=== PATIENT | female | born 1970 | race American Indian/Alaskan Native ===

== ENCOUNTER 2017-04-21 10:22 | Outpatient (CLI) | payer OTHER ==
--- NOTE | 2017-04-21 14:57 | Mammography Report ---
BILATERAL DIGITAL SCREENING MAMMOGRAM with CAD: CLINICAL: Routine screening. COMPARISON:None available. FINDINGS: The breasts are almost entirely fatty. No mass, architectural distortion or suspicious calcifications. IMPRESSION: No mammographic evidence of malignancy. BI-RADS CATEGORY: 1 - - Negative RECOMMENDATION: Routine mammographic screening in one year. COMMENT: Patient follow-up letters are generated by our [employer] application.
== END 2017-04-21 10:23 | disposition home or self-care (01) ==
LOC: SPVWC 10:22
PROVIDERS: ATTEND Family Medicine
DX: Z12.31 Encounter for screening mammogram for malignant neoplasm of breast (principal)
CPT/HCPCS: 77067; G0202

== ENCOUNTER 2017-07-28 08:28 | Outpatient (CLI) | payer OTHER ==
--- NOTE | 2017-07-28 09:34 | XRay Report ---
XRAY LEFT SHOULDER THREE VIEWS: 07/28/17 08:28:00 CLINICAL: Left shoulder pain. FINDINGS: A very mild glenohumeral joint arthritis and mild acromioclavicular joint arthritis. No fracture or dislocation. Normal soft tissues. IMPRESSION: Mild arthritis.
== END 2017-07-28 08:29 | disposition home or self-care (01) ==
LOC: SPVIMAG 08:28
PROVIDERS: ATTEND Orthopaedic Surgery
DX: M19.012 Primary osteoarthritis, left shoulder (principal)

== ENCOUNTER 2020-12-11 08:30 | Outpatient (CLI) | payer OTHER ==
--- NOTE | 2020-12-11 10:33 | Mammography Report ---
DIGITAL SCREENING MAMMOGRAM WITH CAD, 12/11/2020 CLINICAL INFORMATION / INDICATION: Routine screening mammography. SCREENING MAMMO TECHNIQUE: Digital bilateral 2D mammography was obtained in the craniocaudal and mediolateral obliqu e projections. This examination was interpreted with the benefit of Computer-Aided Detection analysis . COMPARISON: 04/21/17. FINDINGS: Breast Density: There are scattered areas of fibroglandular density. No dominant mass, suspicious calcifications, or architectural distortion in either breast. IMPRESSION: No mammographic evidence of malignancy. Follow up recommendation: Routine yearly BI-RADS Category 1: Negative. A "normal" or negative report should not discourage follow up or biopsy of a clinically significant f inding. A written summary of these findings will be mailed to the patient. The patient will be entered into a mammography reporting system which will generate a reminder letter for the patient's next appointmen t at the appropriate interval. The [employer] recommends yearly mammograms starting at age 40 and continuing as l david as a woman is in good health. Breast MRI is recommended for women with an approximate 20-25% or greater lifetime risk of breast cancer, including women with a strong family history of breast or ova ricki cancer or who have been treated for Hodgkin's disease. Signer Name: Tavo Thacker MD Signed: 12/11/2020 10:28 AM Workstation Name: [id number]
== END 2020-12-11 08:31 | disposition home or self-care (01) ==
LOC: SPVWC 08:30
PROVIDERS: ATTEND Internal Medicine
DX: Z12.31 Encounter for screening mammogram for malignant neoplasm of breast (principal); N64.89 Other specified disorders of breast
CPT/HCPCS: 77067